=== PATIENT | female | born 1970 | race Caucasian/White ===

== ENCOUNTER 2017-01-06 15:51 | Emergency (ER) | payer SELFPAY ==
--- NOTE | 2017-01-06 16:22 | ER Document Report ---
ED Medical Screen (RME) - General Stated Complaint: LEFT LEG INJURY Mode of Arrival: Ambulatory Information source: Patient Notes: 46 y/o F presents to ED c/o abrasion to left lower leg. Reports has chronic BLE lymphedema and 3 days ago had abrasion to left lower leg which she wants evaluated for possible infection. Denies fever or drainage. I have greeted and performed a rapid initial assessment of this patient. A comprehensive ED assessment and evaluation of the patient, analysis of test results and completion of the medical decision making process will be conducted by additional ED providers. TRAVEL OUTSIDE OF THE [place] IN LAST 30 DAYS: No - Related Data Allergies/Adverse Reactions: aspirin Allergy (Verified 01/06/17 16:19) Penicillins Allergy (Verified 01/06/17 16:19) Physical Exam - Vital signs Vitals: Temp Pulse Resp BP Pulse Ox 98.2 F 93 20 149/77 H 99 01/06/17 16:17 01/06/17 16:17 01/06/17 16:17 01/06/17 16:17 01/06/17 16:17 - General General appearance: Appears well, Alert In distress: None - Respiratory Respiratory status: No respiratory distress - Abdominal Inspection: Morbidly Obese Course - Vital Signs Vital signs: Temp Pulse Resp BP Pulse Ox 98.2 F 93 20 149/77 H 99 01/06/17 16:17 01/06/17 16:17 01/06/17 16:17 01/06/17 16:17 01/06/17 16:17
--- NOTE | 2017-01-06 18:00 | ER Document Report ---
ED Extremity Problem, Lower - General Chief Complaint: Leg Injury Stated Complaint: LEFT LEG INJURY Time seen by provider: 17:54 Mode of Arrival: Ambulatory Information source: Patient Notes: 46-year-old female presents to ED for abrasions to left lower leg. She was getting out of the car at a bookstore and caught her leg on a branch that cut the lower leg. She called the EMS 3 days ago they told her she did not need sutures and so she has been keeping it clean and putting antibiotic ointment on it with a dressing. She states that there is been oozing for 3 days and she needed it checked out for possible infection. No fever or drainage at this time. TRAVEL OUTSIDE OF THE [place] IN LAST 30 DAYS: No - HPI Patient complains to provider of: Injury, Pain Location: Leg Occurred: Other - 3 days ago Where: Outdoors, Public place Onset/Duration: Persistent Quality of pain: Sharp Severity: Moderate Pain Level: 3 Context: Laceration Recent injury: Yes Associated symptoms: Rapid heart rate Exacerbated by: Movement, Walking Relieved by: Nothing - Related Data Allergies/Adverse Reactions: aspirin Allergy (Verified 01/06/17 16:19) Penicillins Allergy (Verified 01/06/17 16:19) Past Medical History - General Information source: Patient - Social History Smoking Status: Never Smoker Chew tobacco use (# tins/day): No Frequency of alcohol use: Rare Drug Abuse: None Lives with: Family Family History: Reviewed & Not Pertinent Patient has suicidal ideation: No Patient has homicidal ideation: No - Past Medical History Cardiac Medical History: Reports: None Pulmonary Medical History: Reports: None EENT Medical History: Reports: None Neurological Medical History: Reports: None Endocrine Medical History: Reports: Other - Lymphedema both legs severe Renal/ Medical History: Reports: None Malignancy Medical History: Reports: None GI Medical History: Reports: Hx Diverticulitis Musculoskeltal Medical History: Reports Hx Musculoskeletal Deformity Skin Medical History: Reports None Psychiatric Medical History: Reports: None Traumatic Medical History: Reports: None Infectious Medical History: Reports: None Past Surgical History: Reports: Hx Section Review of Systems - Review of Systems Constitutional: No symptoms reported EENT: No symptoms reported Cardiovascular: No symptoms reported Respiratory: No symptoms reported Gastrointestinal: No symptoms reported Genitourinary: No symptoms reported Female Genitourinary: No symptoms reported Musculoskeletal: No symptoms reported Skin: Other - Laceration to the left lower leg. Patient has lymphedema the bilateral lower legs Hematologic/Lymphatic: No symptoms reported Neurological/Psychological: No symptoms reported -: Yes All other systems reviewed and negative Physical Exam - Vital signs Vitals: Temp Pulse Resp BP Pulse Ox 98.2 F 93 20 149/77 H 99 01/06/17 16:17 01/06/17 16:17 01/06/17 16:17 01/06/17 16:17 01/06/17 16:17 Interpretation: Normal - General General appearance: Appears well, Alert - HEENT Head: Normocephalic, Atraumatic Eyes: Normal Pupils: PERRL - Respiratory Respiratory status: No respiratory distress Chest status: Nontender Breath sounds: Normal Chest palpation: Normal - Cardiovascular Rhythm: Regular Heart sounds: Normal auscultation Murmur: No - Abdominal Inspection: Normal Distension: No distension Bowel sounds: Normal Tenderness: Nontender Organomegaly: No organomegaly - Back Back: Normal, Nontender - Extremities General upper extremity: Normal inspection, Nontender, Normal color, Normal ROM , Normal temperature General lower extremity: Normal ROM, Normal temperature, Normal weight bearing. No: Lilly's sign Calf: Laceration - Left lower leg 4 days old starting to heal no redness drainage or swelling noted, Other - Lymphedema severe Ankle: Other - Lymphedema severe - Neurological Neuro grossly intact: Yes Cognition: Normal Orientation: AAOx4 Rajwinder Coma Scale Eye Opening: Spontaneous Rajwinder Coma Scale Verbal: Oriented Rajwinder Coma Scale Motor: Obeys Commands Comerio Coma Scale Total: 15 Speech: Normal Motor strength normal: LUE, RUE, LLE, RLE Sensory: Normal - Psychological Associated symptoms: Normal affect, Normal mood - Skin Skin Temperature: Warm Skin Moisture: Dry Skin Color: Normal Course - Vital Signs Vital signs: Temp Pulse Resp BP Pulse Ox 98.0 F 87 18 141/75 H 99 01/06/17 18:21 01/06/17 18:21 01/06/17 18:21 01/06/17 18:21 01/06/17 18:21 Discharge - Discharge Clinical Impression: Laceration of left lower leg Qualifiers: Encounter type: initial encounter Qualified Code(s): S81.812A - Laceration without foreign body, left lower leg, initial encounter Condition: Stable Disposition: HOME, SELF-CARE Instructions: Family Physicians / Practices Additional Instructions: He will need to contact keep this cut on your leg very clean and covered with some type of the dressing. Please wash several times a day with some mild soap and rinsed well with water apply some bacitracin ointment and a clean dressing. Any redness swelling or fevers please come back to the emergency room and have this reexamined. SOAP CLEANSING: Gently wash the wound daily using a mild soap (like Ivory, Phisoderm, Neutrogena). Use warm water, rubbing gently until all debris, ooze, and crusting have been washed from the wound. Allow to dry briefly (about 10 minutes) after cleaning. Repeat this cleansing at least three times a day for the first two days and then once or twice a day. ANTIBIOTIC OINTMENT PROTECTION: Your wounds are such that dressing them is not practical or optional. After cleansing, you should apply a thin coating of antibiotic ointment ( Bacitracin, not Neosporin) to the wounds at least three times daily. This lessens infection risk, and may decrease the amount of scarring. Use a q-tip or dull butter knife, not your finger, to apply this ointment. Any debris or ooze which builds up in the ointment should be gently rubbed off with a sterile gauze pad. Harder crusting may need to be gently scrubbed off with a clean wash cloth with soap and warm water, perhaps applying a warm, wet wash cloth to the wound for ten minutes first. Development of redness, severe itching, or blistering may mean allergy to the ointment. See the doctor. Doxycycline Doxycycline (Vibramycin, Doryx) is an antibiotic of the tetracycline family. This type of drug is useful for infections of the respiratory tract and genital tract, and is sometimes used for intestinal infections. Unlike most tetracyclines, doxycycline can be taken with food. It is longer acting, and (usually) less prone to side effects than regular tetracycline. Tetracycline antibiotics can stain immature teeth and SHOULD NOT BE TAKEN BY CHILDREN, NURSING MOTHERS, OR WOMEN. Tetracyclines can make you more prone to sunburn. Abdominal cramping, nausea, and diarrhea are occasional side effects. Women may experience vaginal yeast infections. Call the doctor at once if you develop hives, itching, shortness of breath , or lightheadedness. FOLLOW-UP CARE: If you have been referred to a physician for follow-up care, call the physician s office for an appointment as you were instructed or within the next two days. If you experience worsening or a significant change in your symptoms, notify the physician immediately or return to the Emergency Department at any time for re-evaluation. Prescriptions: Doxycycline Hyclate 100 mg PO BID #14 capsule Forms: Elevated Blood Pressure Referrals: HERMELINDA HAY MD [Primary Care Provider] - Follow up as needed
[2017-01-06 18:22] VITALS: BP 141/75
== END 2017-01-06 18:26 | disposition home or self-care (01) ==
LOC: ER 15:51
DX: S81.812A Laceration without foreign body, left lower leg, initial encounter (principal); S80.812A Abrasion, left lower leg, initial encounter; X58.XXXA Exposure to other specified factors, initial encounter
CPT/HCPCS: 99283

== ENCOUNTER → 2018-01-06 | Outpatient (CLI) | payer MEDICARE ==
--- NOTE | 2018-01-06 14:14 | RADIOLOGY REPORT (SQ) ---
EXAM DESCRIPTION: FOOT RIGHT COMPLETE COMPLETED DATE/TIME: 01/06/2018 12:53 pm REASON FOR STUDY: PAIN IN RIGHT FOOT M79.671 PAIN IN RIGHT FOOT COMPARISON: None. NUMBER OF VIEWS: Three views. TECHNIQUE: AP, lateral and oblique without weight bearing radiographic images acquired of the right foot. LIMITATIONS: None. FINDINGS: MINERALIZATION: Normal. BONES: No acute fracture or dislocation. No worrisome bone lesions. No significant osteophytes. JOINTS: No erosions. No katlyn-articular osteopenia. No chondrocalcinosis. SOFT TISSUES: Marked generalized soft tissue swelling OTHER: Small anterior and posterior heel spurs. IMPRESSION: Marked generalized soft tissue swelling. Small heel spurs. No other bony pathology. TECHNICAL DOCUMENTATION: JOB ID: [id number] [employer]- All Rights Reserved Reading location - IP/workstation name: [email or web address]
== END ==
LOC: OD 12:23
PROVIDERS: ATTEND Family Medicine Geriatric Medicine
DX: M79.671 Pain in right foot (principal); M77.31 Calcaneal spur, right foot